=== PATIENT | female | born 1990 | race African-American/Black ===

== ENCOUNTER → 2016-12-01 | Outpatient (CLI) | payer OTHER ==
[~2016-12-01] MED LIST: FLUO40CA9 PO; LAMO25TA5 PO; NORG1TAB34 PO; PRAZ2CAP2 PO; PROAIR HFA8.5 GM IH
--- NOTE | 2016-12-01 11:32 | RAD ---
MRI Brain without contrast History: Recent seizures in September without aura Technique: Multiplanar, multisequential noncontrast MR imaging was performed of the brain. Contrast: None Comparison: None Findings: There is some motion degradationThere is no evidence of an acute infarct or cytotoxic edema. The ventricles, sulci, and cisterns are within normal limits in size and configuration. There is no significant midline shift, intra-axial mass effect, or focal abnormal extra-axial fluid collection. Very mild FLAIR hyperintense near the frontal and occipital horns can be seen in asymptomatic individuals. Otherwise there is no significant focal signal abnormality including hemosiderin deposition of the brain parenchyma. There is preservation of the major intracranial flow-voids at the skull base. The mastoid air cells are aerated. The cerebellar tonsils are normal in location. There is no significant abnormality of the pineal gland. There is convex margin of the superior pituitary gland. There is patchy [id number] ethmoid air cell and mild bilateral maxillary sinus mucosal thickening. There is likely mucus retention cyst of the medial left maxillary sinus up to 1.2 cm, also greater degree of mucosal thickening or retention cyst along the lateral margin of the left middle turbinate. There is preserved marrow signal of the clivus. Hippocampal formations are symmetric in size and signal characteristics. Impression: 1. There is no significant intracranial abnormality. 2. There is paranasal sinus mucosal thickening is demonstrated. 3. There is nonspecific convex superior margin of the pituitary gland. Findings could be due to hyperplasia, difficult to exclude small mass. Electronically signed by: Jose Ariza MD (12/01/2016 11:28 AM)
== END | disposition home or self-care (01) ==
LOC: MRI 07:40
PROVIDERS: ATTEND Psychiatry & Neurology Neurology with Special Qualifications in Child Neurology
DX: R56.9 Unspecified convulsions (principal); R10.11 Right upper quadrant pain; J34.89 Other specified disorders of nose and nasal sinuses
CPT/HCPCS: 70551

== ENCOUNTER → 2016-12-29 | Outpatient (CLI) | payer OTHER ==
--- NOTE | 2017-01-03 18:57 | EEG ---
DATE OF SERVICE: 12/29/2016 ELECTROENCEPHALOGRAM NUMBER: [id number] performed on 12/29/2016. OBJECTIVE: The patient is a 26-year-old female with seizure. DESCRIPTION OF PROCEDURE: This is a digital study. Electrodes are placed according to the international 10-20 system. Bipolar and referential montages are available. Activation procedures typically include hyperventilation and intermittent photic stimulation. INTERPRETATION: The waking background consists of 10-11 Hz, 50-100 microvolt activity, symmetrically distributed over parietooccipital regions and reactive to eye opening. Hyperventilation and intermittent photic stimulation are noncontributory. Stage I sleep is achieved with normal electroencephalogram patterns. IMPRESSION: This electroencephalogram with the patient awake and asleep is within normal limits. There is no focal, paroxysmal, or epileptiform activity. The roofing technician obtained a history that the patient's seizures are triggered by blood draws and other stressors. Thank you for letting us help with the patient's care. ALPHONSO BURGESS MD DR: RADHA/anton JOB#: [id number] / [id number] LENKA Silva MD
== END | disposition home or self-care (01) ==
LOC: RT 06:02
PROVIDERS: ATTEND Psychiatry & Neurology Neurology with Special Qualifications in Child Neurology
DX: R56.9 Unspecified convulsions (principal)
CPT/HCPCS: 95816

== ENCOUNTER → 2018-01-05 | Outpatient (CLI) | payer OTHER | END | disposition home or self-care (01) | LOC: RT 08:17 | DX: R56.9 Unspecified convulsions (principal) | CPT/HCPCS: 95816 ==